=== PATIENT | male | born 1985 | race Caucasian/White ===

== ENCOUNTER 2017-09-15 22:31 | Emergency (ER) | payer OTHER ==
[~2017-09-15] VITALS: Ht 165.1 cm; Wt 71.0 kg
[~2017-09-15 22:31] MED LIST: ADDE30TA PO; AUGM875T PO; CLON.5 PO; HYDR-3533 PO; LAMO150T PO; Z.0.NO CURRENT MEDS
[2017-09-15 23:09] LABS: AUTOMATED NEUTROPHIL # 6.9 TH/MM3 (1.8-7.7); BASOPHIL # 0.1 TH/MM3 (0-0.2); BASOPHIL % 0.5 % (0.0-2.0); EOSINOPHIL # 0.2 TH/MM3 (0-0.4); EOSINOPHIL % 1.6 % (0.0-4.0); HEMATOCRIT 50.3 % (39.0-51.0); HEMOGLOBIN 17.2 GM/DL (13.0-17.0); LYMPH % 20.8 % (9.0-44.0); LYMPHOCYTE # 2.1 TH/MM3 (1.0-4.8); MEAN CORPUSCULAR HEMOGLOBIN 31.1 PG (27.0-34.0); MEAN CORPUSCULAR HGB CONC 34.2 % (32.0-36.0); MEAN PLATELET VOLUME 8.2 FL (7.0-11.0); MONO % 7.4 % (0.0-8.0); MONOCYTE # 0.7 TH/MM3 (0-0.9); NEUT % 69.7 % (16.0-70.0); PLATELET COUNT 281 TH/MM3 (150-450); RED BLOOD COUNT 5.53 MIL/MM3 (4.50-5.90); RED CELL DISTRIBUTION WIDTH 13.7 % (11.6-17.2); WHITE BLOOD COUNT 9.9 TH/MM3 (4.0-11.0)
[2017-09-15 23:16] VITALS: BP 142/79; PULSE 110; RESP 18; TEMP 98.6; O2SAT 99
--- NOTE | 2017-09-15 23:18 | PD ---
HPI Chief Complaint: Psychiatric Symptoms Time Seen by Provider: 23:10 Travel History International Travel<30 days: No Contact w/Intl Traveler<30days: No Traveled to known affect area: No History of Present Illness HPI 32-year-old male presents under Crowder act initiated by [place] [employer]. According to his paperwork, "Zac made statements to his prior employer that he had thoughts of harming himself. These thoughts were caused by the recent loss of his job." The patient reports that he went to his boss today for advice. During the course of the conversation his boss asked him if he had ever had thoughts of hurting himself and he reports that he did when he was younger. The patient reports that later on in the day he quit his job and upon returning home the police came to his house and placed him under Crowder act. The patient is denying any suicidal or homicidal thoughts currently. He denies any suicide attempts in the past. He admits to occasional alcohol use. Denies any illicit drug use. He has no medical complaints at this time. [facility] Past Medical History Anxiety: Yes Depression: Yes Diminished Hearing: No Immunizations Current: Yes Past Surgical History Mastectomy: Yes (BILATERAL) Social History Alcohol Use: Yes ("WEEKENDS") Tobacco Use: Yes Substance Use: No Allergies-Medications (Allergen,Severity, Reaction): Coded Allergies: Sulfa (Sulfonamide Antibiotics) (Unverified Allergy, Mild, RASH, 05/17/17) Reported Meds & Prescriptions Reported Meds & Active Scripts Active Lortab 5 mg/325 mg (Hydrocodone/Acetaminophen 5 mg/325 mg) 1 Tab 1 Tab PO Q6H PRN Augmentin 875 mg Tab (Amoxicillin & Pot Clavulanate 875 mg Tab) 875 Mg Tab 875 Mg PO BID 10 Days Reported Klonopin (Clonazepam) 0.5 Mg Tab 0.5 Mg PO TID PRN Lamotrigine 150 Mg Tab 150 Mg PO BID Adderall 30 mg (Amphetamine/Dextroamphetamine) 30 Mg Tab 20 Mg PO BID No Current Meds (Miscellaneous Medication) Misc Review of Systems Except as stated in HPI: all other systems reviewed are Neg Physical Exam Narrative GENERAL: Well-developed well-nourished male in no acute distress SKIN: Warm and dry. HEAD: Atraumatic. Normocephalic. EYES: Pupils equal and round. No scleral icterus. No injection or drainage. ENT: No nasal bleeding or discharge. Mucous membranes pink and moist. NECK: Trachea midline. No JVD. CARDIOVASCULAR: Regular rate and rhythm. No murmur appreciated. RESPIRATORY: No accessory muscle use. Clear to auscultation. Breath sounds equal bilaterally. GASTROINTESTINAL: Abdomen soft, non-tender, nondistended. Hepatic and splenic margins not palpable. MUSCULOSKELETAL: No obvious deformities. No clubbing. No cyanosis. No edema. NEUROLOGICAL: Awake and alert. No obvious cranial nerve deficits. Motor grossly within normal limits. Normal speech. PSYCHIATRIC: Appropriate mood and affect; insight and judgment normal. Data Data Last Documented VS Vital Signs Date Time Temp Pulse Resp B/P (MAP) Pulse Ox O2 Delivery O2 Flow Rate FiO2 09/15/17 23:16 98.6 110 18 142/79 (100) 99 Room Air Orders Orders Complete Blood Count With Diff (09/15/17 22:42) Comprehensive Metabolic Panel (09/15/17 22:42) Psych Screen (09/15/17 22:42) Drug Screen, Random Urine (09/15/17 22:42) Labs Laboratory Tests Test 09/15/17 22:55 09/15/17 23:09 White Blood Count 9.9 TH/MM3 Red Blood Count 5.53 MIL/MM3 Hemoglobin 17.2 GM/DL Hematocrit 50.3 % Mean Corpuscular Volume 91.0 FL Mean Corpuscular Hemoglobin 31.1 PG Mean Corpuscular Hemoglobin Concent 34.2 % Red Cell Distribution Width 13.7 % Platelet Count 281 TH/MM3 Mean Platelet Volume 8.2 FL Neutrophils (%) (Auto) 69.7 % Lymphocytes (%) (Auto) 20.8 % Monocytes (%) (Auto) 7.4 % Eosinophils (%) (Auto) 1.6 % Basophils (%) (Auto) 0.5 % Neutrophils # (Auto) 6.9 TH/MM3 Lymphocytes # (Auto) 2.1 TH/MM3 Monocytes # (Auto) 0.7 TH/MM3 Eosinophils # (Auto) 0.2 TH/MM3 Basophils # (Auto) 0.1 TH/MM3 CBC Comment DIFF FINAL Differential Comment Blood Urea Nitrogen 8 MG/DL Creatinine 1.05 MG/DL Random Glucose 85 MG/DL Total Protein 7.8 GM/DL Albumin 4.1 GM/DL Calcium Level 9.0 MG/DL Alkaline Phosphatase 54 U/L Aspartate Amino Transf (AST/SGOT) 45 U/L Alanine Aminotransferase (ALT/SGPT) 58 U/L Total Bilirubin 1.1 MG/DL Sodium Level 137 MEQ/L Potassium Level 4.0 MEQ/L Chloride Level 102 MEQ/L Carbon Dioxide Level 26.6 MEQ/L Anion Gap 8 MEQ/L Estimat Glomerular Filtration Rate 82 ML/MIN Urine Opiates Screen NEG Urine Barbiturates Screen NEG Urine Amphetamines Screen NEG Urine Benzodiazepines Screen NEG Urine Cocaine Screen NEG Urine Cannabinoids Screen NEG MDM Medical Decision Making Medical Screen Exam Complete: Yes Emergency Medical Condition: Yes Medical Record Reviewed: Yes Differential Diagnosis Adjustment reaction, acute psychosis, major depressive disorder, depressive disorder not otherwise specified, substance induced mood disorder Narrative Course 32-year-old male presents under Crowder act for psychiatric evaluation. Mental health screening discussed with the patient. Psychiatric screen ordered. The patient is medically cleared for psychiatric disposition. Diagnosis Primary Impression: Medical clearance for psychiatric admission Papo Henley Sep 15, 2017 23:18
[2017-09-15 23:32] LABS: ALBUMIN 4.1 GM/DL (3.4-5.0); ALT (GPT) 58 U/L (12-78); AST (GOT) 45 U/L (15-37); BICARBONATE 26.6 MEQ/L (21.0-32.0); BLOOD UREA NITROGEN 8 MG/DL (7-18); CHLORIDE 102 MEQ/L (98-107); CREATININE 1.05 MG/DL (0.60-1.30); GLOMERULAR FILTRATION RATE 82 ML/MIN (>89); GLUCOSE,RANDOM 85 MG/DL (74-106); SODIUM (NA) 137 MEQ/L (136-145)
[2017-09-15 23:34] LABS: ALKALINE PHOSPHATASE 54 U/L (45-117); TOTAL BILIRUBIN ADULT 1.1 MG/DL (0.2-1.0); TOTAL PROTEIN 7.8 GM/DL (6.4-8.2)
[2017-09-16 02:18] VITALS: BP 140/84; PULSE 111; RESP 17; TEMP 98.6; O2SAT 99
== END 2017-09-16 04:23 ==
LOC: NEPJ 22:31
DX: F32.9 Major depressive disorder, single episode, unspecified (principal); F41.9 Anxiety disorder, unspecified; Z72.0 Tobacco use
CPT/HCPCS: 80053; 80307; 85025; 99283

== ENCOUNTER 2017-09-27 06:14 | Emergency (ER) | payer OTHER ==
[~2017-09-27] VITALS: Ht 165.1 cm; Wt 88.0 kg
[2017-09-27 06:29] VITALS: BP 134/89; PULSE 109; RESP 20; TEMP 98.5; O2SAT 98
--- NOTE | 2017-09-27 06:53 | PD ---
HPI Chief Complaint: Psychiatric Symptoms Time Seen by Provider: 06:50 Travel History International Travel<30 days: No Contact w/Intl Traveler<30days: No Traveled to known affect area: No History of Present Illness HPI This is a 32-year-old male who presents under Crowder act initiated by the Police Department. According to his paperwork the patient's father reported that he threatened multiple times to shoot himself with a firearm those located inside of the residence. The patient does report that recently he lost his job. Tonight he did drink some liquor and there was an argument in regards to the patient having a concealed firearm. He denies making any threats of self-harm. He reports that he is under some stress in regards to trying to find a new job. He denies any drug use, denies any auditory or visual hallucinations. The patient was seen here under Crowder act on September 15 after losing his job. He was transferred history where he spent 2 days. He is not currently seeing a psychiatrist or therapist. [facility] Past Medical History Anxiety: Yes Depression: Yes Diminished Hearing: No Immunizations Current: Yes Tetanus Vaccination: Unknown Influenza Vaccination: No Past Surgical History Mastectomy: Yes (BILATERAL) Social History Alcohol Use: Yes ("WEEKENDS") Tobacco Use: Yes Substance Use: No Allergies-Medications (Allergen,Severity, Reaction): Coded Allergies: Sulfa (Sulfonamide Antibiotics) (Unverified Allergy, Mild, RASH, 09/27/17) Reported Meds & Prescriptions Reported Meds & Active Scripts Active Review of Systems Except as stated in HPI: all other systems reviewed are Neg Physical Exam Narrative GENERAL: Well-developed well-nourished male in no acute distress SKIN: Warm and dry. HEAD: Atraumatic. Normocephalic. EYES: Pupils equal and round. No scleral icterus. No injection or drainage. ENT: No nasal bleeding or discharge. Mucous membranes pink and moist. NECK: Trachea midline. No JVD. CARDIOVASCULAR: Regular rate and rhythm. No murmur appreciated. RESPIRATORY: No accessory muscle use. Clear to auscultation. Breath sounds equal bilaterally. GASTROINTESTINAL: Abdomen soft, non-tender, nondistended. Hepatic and splenic margins not palpable. MUSCULOSKELETAL: No obvious deformities. No clubbing. No cyanosis. No edema. NEUROLOGICAL: Awake and alert. No obvious cranial nerve deficits. Motor grossly within normal limits. Normal speech. PSYCHIATRIC: Appropriate mood and affect; insight and judgment normal. Data Data Last Documented VS Vital Signs Date Time Temp Pulse Resp B/P (MAP) Pulse Ox O2 Delivery O2 Flow Rate FiO2 09/27/17 06:29 98.5 109 20 134/89 (104) 98 Orders Orders Psych Screen (09/27/17 06:47) Drug Screen, Random Urine (09/27/17 06:47) Alcohol (Ethanol) (09/27/17 06:47) MDM Medical Decision Making Medical Screen Exam Complete: Yes Emergency Medical Condition: Yes Medical Record Reviewed: Yes Differential Diagnosis Adjustment reaction, major depressive disorder, substance induced mood disorder , acute psychosis Narrative Course 32-year-old male presents under Crowder act after reportedly making threats to shoot himself with a firearm. I reviewed his records from his September 15 visit including his lab work. Mental health screening discussed with the patient. Psychiatric screen ordered. The patient is medically cleared. Diagnosis Primary Impression: Medical clearance for psychiatric admission Papo Henley Sep 27, 2017 06:53
[2017-09-27 09:16] VITALS: BP 130/81; TEMP 97.8
[2017-09-27 09:22] VITALS: BP 147/74; PULSE 110; RESP 18; TEMP 99.9; O2SAT 98
--- NOTE | 2017-09-27 10:39 | PD ---
History of Present Illness Chief Complaint: Psychiatric Symptoms Travel History International Travel<30 Days: No Contact w/Intl Traveler<30days: No Known affected area: No Legal Status Legal Status: Crowder Act Crowder Act Signed By: Panfilo Santillan Crowder Act Comment: Signed by [employer] Officer Leisa Mayberry #[id number]. History of Present Illness: 32-year-old male presents under a Crowder act for allegedly making threats to shoot himself. Patient was here recently after losing his job. He went to [facility] for 2 days of treatment. He was drinking alcohol again last night and his toxicology screen demonstrates that. At the present time he is no longer intoxicated. He shows no psychotic symptoms and no cognitive deficits. He is verbally aguila for safety and he is competent to do so. He denies any suicidal or homicidal ideation, plan or intent. He would like to go home and is not interested in treatment elsewhere. [facility] Past Medical History Anxiety: Yes Depression: Yes Diminished Hearing: No Immunizations Current: Yes Tetanus Vaccination: Unknown Influenza Vaccination: No Past Surgical History Mastectomy: Yes (BILATERAL) Psychiatric History Psychiatric History Hx Psychiatric Treatment: Per pt, has been treated in the past by psychiatrist, MD Papa. Stated that he was last seen in December/January of this year. He stated that he stopped seeing him due to funds. He stated that he was being treated with "a light dose of Klonopin" and he reports Adderal 20mg BID then. But it became too expensive for him to continue. He stated that he is not seeing a therapist but was considering seeing one in the New Year. History of Inpatient Treatment: No Guns or firearms in home: Yes Social History Hx Alcohol Use: Yes ("WEEKENDS") Hx Tobacco Use: Yes Hx Substance Use: No (Pt denies substance abuse issues. ) Substance Use Type: Alcohol, Amphetamines-Stimulants Other Substances Used: occ. alcohol, 1 cig./day Hx of Substance Use Treatment: No Allergies-Medications (Allergen,Severity, Reaction): Coded Allergies: Sulfa (Sulfonamide Antibiotics) (Unverified Allergy, Mild, RASH, 09/27/17) Reported Meds & Prescriptions Reported Meds & Active Scripts Active Review of Systems Except as stated in HPI: all other systems reviewed are Neg Mental Status Examination Appearance: Appropriate Consciousness: Alert Orientation: x4 Motor Activity: Normal gait Speech: Unremarkable Language: Adequate Fund of Knowledge: Adequate Attention and Concentration: Adequate Memory: Unremarkable Mood: Appropriate Affect: Appropriate Thought Process & Associations: Intact Thought Content: Appropriate Hallucination Type: None Delusion Type: None Suicidal Ideation: No Suicidal Plan: No Suicidal Intention: No Homicidal Ideation: No Homicidal Plan: No Homicidal Intention: No Insight: Adequate Judgment: Adequate MDM Medical Decision Making Medical Record Reviewed: Yes Assessment/Plan Patient interviewed at bedside. Electronic medical record reviewed. Case discussed with nurse Tracy. Patient showing no signs of alcohol withdrawal at this time. He does not wish any further treatment and he remains competent to make that decision. He does not meet criteria for Crowder act or involuntary psychiatric hospitalization. Orders Orders Psych Screen (09/27/17 06:47) Drug Screen, Random Urine (09/27/17 06:47) Alcohol (Ethanol) (09/27/17 06:47) Diet Regular Basic (09/27/17 Breakfast) Results Vital Signs Date Time Temp Pulse Resp B/P (MAP) Pulse Ox O2 Delivery O2 Flow Rate FiO2 09/27/17 09:22 99.9 110 18 147/74 (98) 98 Room Air 09/27/17 09:16 97.8 98 16 130/81 (97) 99 09/27/17 07:00 17 09/27/17 06:29 98.5 109 20 134/89 (104) 98 Laboratory Tests Test 09/27/17 07:10 09/27/17 07:35 Ethyl Alcohol Level 151 Urine Opiates Screen NEG Urine Barbiturates Screen NEG Urine Amphetamines Screen NEG Urine Benzodiazepines Screen NEG Urine Cocaine Screen NEG Urine Cannabinoids Screen NEG Diagnosis Primary Impression: Alcohol abuse Allan Raymundo MD Sep 27, 2017 10:39
--- NOTE | 2017-09-27 10:57 | PD ---
Physical Exam Date Seen by Provider: Sep 27, 2017 Time Seen by Provider: 10:55 Narrative 38-year-old male was in the emergency Department under Crowder act by local police. The patient's been seen and examined by the psychiatrist and the Crowder act has been lifted. I then asked to discharge the patient. Data Data Last Documented VS Vital Signs Date Time Temp Pulse Resp B/P (MAP) Pulse Ox O2 Delivery O2 Flow Rate FiO2 09/27/17 09:22 99.9 110 18 147/74 (98) 98 Room Air Orders Orders Psych Screen (09/27/17 06:47) Drug Screen, Random Urine (09/27/17 06:47) Alcohol (Ethanol) (09/27/17 06:47) Diet Regular Basic (09/27/17 Breakfast) Labs Laboratory Tests Test 09/27/17 07:10 09/27/17 07:35 Ethyl Alcohol Level 151 MG/DL Urine Opiates Screen NEG Urine Barbiturates Screen NEG Urine Amphetamines Screen NEG Urine Benzodiazepines Screen NEG Urine Cocaine Screen NEG Urine Cannabinoids Screen NEG MDM Supervised Visit with PURVI: No Narrative Course 32-year-old male presents to the emergency Department under Crowder act by local police. I my exam, he denies any thoughts of hurting himself or anybody else. He feels comfortable going home. He has no medical complaints at this time. The patient was discharged in stable condition with instructions, including return instructions and follow up instructions. Diagnosis Primary Impression: Alcohol abuse Referrals: [facility] (Out patient) Patient Instructions: Abuse of Alcohol (ED), General Instructions Additional Instruction: Follow-up at [facility]. Follow-up with your primary care physician. Return to the emergency department for any acute worsening of symptoms. Med/Other Pt SpecificInfo: No Change to Meds Disposition: 01 DISCHARGE HOME Condition: Stable Alina David ELVIN Sep 27, 2017 10:57
== END 2017-09-27 11:44 | disposition home or self-care (01) ==
LOC: NEPD 06:14 → NEPJ 11:44
DX: F10.10 Alcohol abuse, uncomplicated (principal); Y90.6 Blood alcohol level of 120-199 mg/100 ml; Z72.0 Tobacco use
CPT/HCPCS: 80307; 99284